=== PATIENT | male | born 1985 | race Two or more races ===

== ENCOUNTER 2025-07-22 14:36 | Emergency (ER) | payer OTHER ==
[2025-07-22 14:42] VITALS: BP 135/73; PULSE 92; RESP 16; TEMP 97.3; BMI 34.2
[2025-07-22] MEDS ORDERED: ACETAMINOPHEN INJECTION 100 ML ONE (15:01)
[2025-07-22 15:05] LABS: ABSOLUTE IMMATURE GRANULOCYTES 0.01 x10^3/uL (0.0-0.031); BASOPHILS # 0.01 x10^3/uL (0.01-0.08); EOSINOPHIL % 0.7 % (0.8-7.0); EOSINOPHILS # 0.04 x10^3/uL (0.04-0.54); MCHC 33.7 g/dl (32.3-36.5); MEAN CELL VOLUME 88.3 fl (79.0-92.2); MEAN PLT VOLUME 10.9 fl (9.4-12.4); MONOCYTE # 0.36 x10^3/uL (0.30-0.82); MONOCYTE % 6.7 % (5.3-12.2); RDW 12.2 % (12.1-15.9)
[2025-07-22] MEDS: ACETAMINOPHEN 1000 MG/100 ML BAG IVPB ONE (15:09)
[2025-07-22] MEDS: SODIUM CHLORIDE 0.9% 500 ML INFUS.BAG IV ONE (15:09)
[2025-07-22 15:13] LABS: INR 1.09 (0.83-1.09); PROTHROMBIN TIME (PATIENT) 12.0 SEC (9.7-13.0)
[2025-07-22 15:16] LABS: ACTIVATED PTT 32.6 SECONDS (25.2-36.5)
[2025-07-22 15:28] LABS: GLUCOSE,RANDOM 123.0 mg/dL (74-106)
[2025-07-22 15:29] LABS: TOT PROT 7.1 g/dl (6.4-8.2)
[2025-07-22 15:30] LABS: CO2 26.0 mmol/L (21-32)
[2025-07-22 15:31] LABS: ALK PHOS 52.0 U/L (40-150)
[2025-07-22 15:34] LABS: CREATININE 0.84 mg/dL (0.55-1.3); SGOT/AST 33.0 U/L (5-34); SGPT/ALT 76.0 U/L (0-55)
[2025-07-22] MEDS ORDERED: KETOROLAC TROMETHAMINE 15 MG/ML VIAL ONE (17:20)
[2025-07-22] MEDS: KETOROLAC TROMETHAMINE 15 MG/ML VIAL IVPUSH ONE (17:26)
== END 2025-07-22 19:29 | disposition home or self-care (01) ==
LOC: JER 14:36
PROC: 3E033NZ Introduction of Analgesics, Hypnotics, Sedatives into Peripheral Vein, Percutaneous Approach (ICD-10-PCS; principal; 2025-07-22)
PROC: 3E0333Z Introduction of Anti-inflammatory into Peripheral Vein, Percutaneous Approach (ICD-10-PCS; 2025-07-22)
DX: M25.512 Pain in left shoulder (principal); M54.2 Cervicalgia; W01.198A Fall on same level from slipping, tripping and stumbling with subsequent striking against other object, initial encounter
CPT/HCPCS: 36415; 70450-TC; 71045-TC-FY; 72125-TC; 73030-TC-LT-FY; 73060-TC-LT-FY; 80053; 85025; 85610; 85730; 86850; 86900; 86901; 99285-25